=== PATIENT | male | born 1940 | race Caucasian/White ===

== ENCOUNTER 2017-04-21 17:35 | Inpatient (IN) | payer MEDICARE, BC ==
[2017-04-21] MEDS ORDERED: Sodium Chloride 0.9% 10 ML Syringe FLUSH PRN ×2 (17:56→21:51)
[2017-04-21] MEDS ORDERED: Sodium Chloride 0.9% 1,000 ML IV ONE (17:58)
[2017-04-21] MEDS ORDERED: Albuterol/Ipratropium 3.0-0.5 MG/3 ML Neb Soln NEB ONE (18:13)
[2017-04-21] MEDS ORDERED: Acetaminophen 325 MG Tab PO ONE (18:13)
[2017-04-21] MEDS ORDERED: cefTRIAXone 1 GM in Sodium Chloride 0.9% 50 ML IV ONE (19:47)
[2017-04-21] MEDS ORDERED: Azithromycin 500 MG in Sodium Chloride 0.9% 250 ML IV ONE (19:53)
--- NOTE | 2017-04-21 20:10 | EDM.PDOC ---
ED HPI GENERAL MEDICAL PROBLEM - General Chief Complaint: General Stated Complaint: ILLNESS WEAK ALFONSO Time Seen by Provider: 04/21/17 18:50 Source of Information: Reports: Patient, Family History Limitations: Reports: No Limitations - History of Present Illness INITIAL COMMENTS - FREE TEXT/NARRATIVE: Estevan is a 76 year old male who presents to the ED today with c/o increased fatigue and weakness since yesterday. Patient has had a URI for the last week. Patient denies any nausea, vomiting, or diarrhea. Patient denies any urinary symptoms. Patient on arrival here has a temperature of 103.8 F. Patient has had no Tylenol yet today. Duration: Day(s): (2) - Related Data Allergies Allergy/AdvReac Type Severity Reaction Status Date / Time No Known Allergies Allergy Verified 04/21/17 17:56 Home Meds: Home Meds Atenolol [Atenolol] 04/21/17 [History] Omeprazole 04/21/17 [History] Simvastatin [Zocor] 04/21/17 [History] Triamterene/Hydrochlorothiazid [Triamterene-HCTZ 37.5-25 MG] 04/21/17 [History] Past Medical History - Past Surgical History Musculoskeletal Surgical History: Reports: Knee Replacement Social & Family History - Tobacco Use Smoking Status *Q: Never Smoker ED ROS GENERAL - Review of Systems Review Of Systems: See Below Constitutional: Reports: Weakness, Fatigue Respiratory: Reports: Shortness of Breath, Wheezing, Cough, Sputum Cardiovascular: Reports: No Symptoms GI/Abdominal: Reports: No Symptoms : Reports: No Symptoms Musculoskeletal: Reports: No Symptoms Skin: Reports: No Symptoms Neurological: Reports: No Symptoms Psychiatric: Reports: No Symptoms ED EXAM, GENERAL - Physical Exam Exam: See Below Exam Limited By: No Limitations General Appearance: Alert, WD/WN Throat/Mouth: Normal Inspection, Normal Oropharynx Head: Atraumatic Neck: Normal Inspection, Supple, Non-Tender Respiratory/Chest: Rhonchi (Rhonchi right lower lobe, wheezing throughout), Wheezing Cardiovascular: Normal Peripheral Pulses, Regular Rate, Rhythm, No Murmur GI/Abdominal: Normal Bowel Sounds, Soft, Non-Tender Extremities: Normal Inspection Neurological: Alert, Oriented, CN II-XII Intact Psychiatric: Normal Affect, Normal Mood Skin Exam: Other (Hot to touch, flushed) Course - Vital Signs Text/Narrative:: Estevan is a 76 year old male who presents to the ED today with his family for concerns of increased weakness, fatigue and cough since yesterday. Please refer to HPI and focused exam. Patient on arrival is febrile with temp of 103.8 , he is normotensive and not tachycardic. Concerns for pneumonia given fever and recent URI. Possible other infection source given age is also possible such as UTI. He denies any abdominal pain to suggest intra-abdominal process. He denies any chest pain. PIV established, blood work obtained including cultures. Patient was given 1 liter of NS and 650 mg of Tylenol. Blood work returns with WBC of 3.9, HGb 13.9, platelets are low at 69. CMP returns with sodium of 128, chloride low at 92, albumin low at 3.2, elevated AST of 80 and elevated alkaline phos of 141. Lactic Acid is normal. CXR obtained and is questionable for early RLL infiltrate as well as retro-cardiac opacity, reviewed as well with Dr. Diana. UA pending. I feel given patient's age along with significant fever he should be admitted for observation, I will start him on Rocephin and Zithromax IV to cover for CAP. Patient was accepted for admission by hospitalist, Dr. Colbert. Patient and family updated on plan of care and are agreeable. Last Recorded V/S: Last Vital Signs Temp 39.6 C H 04/21/17 19:08 Pulse 74 04/21/17 19:43 Resp 18 04/21/17 18:02 BP 125/56 L 04/21/17 19:43 Pulse Ox 95 04/21/17 19:43 - Orders/Labs/Meds Orders: Active Orders 24 hr Category Date Time Status Peripheral IV Care [RC] . DIRECTED Care 04/21/17 17:56 Active RT Aerosol Therapy [RC] ASDIRECTED Care 04/21/17 18:14 Active Chest 2V [CR] Stat Exams 04/21/17 18:14 Taken CULTURE BLOOD [BC] Urgent Lab 04/21/17 18:15 Received CULTURE BLOOD [BC] Urgent Lab 04/21/17 18:18 Received UA W/MICROSCOPIC [URIN] Stat Lab 04/21/17 19:47 Uncollected Azithromycin [Zithromax] 500 mg Med 04/21/17 19:53 Active Sodium Chloride 0.9% [Normal Saline] 250 ml IV ONETIME Sodium Chloride 0.9% [Saline Flush] Med 04/21/17 17:56 Active 10 ml FLUSH ASDIRECTED PRN cefTRIAXone [Rocephin] 1 gm Med 04/21/17 19:47 Active Sodium Chloride 0.9% [Normal Saline] 50 ml IV ONETIME Blood Culture x2 Reflex Set [OM.PC] Urgent Oth 04/21/17 17:57 Ordered Peripheral IV Insertion Adult [OM.PC] Routine Ot 04/21/17 17:56 Ordered Medication Orders Azithromycin 500 mg/ Sodium (Chloride) 250 mls @ 250 mls/hr IV ONETIME ONE Stop: 04/21/17 20:52 Ceftriaxone Sodium 1 gm/ (Sodium Chloride) 50 mls @ 100 mls/hr IV ONETIME ONE Stop: 04/21/17 20:16 Sodium Chloride (Saline Flush) 10 ml FLUSH ASDIRECTED PRN PRN Reason: Keep Vein Open Last Admin: 04/21/17 19:09 Dose: 10 ml Labs: Laboratory Tests 04/21/17 04/21/17 04/21/17 Range/Units 18:15 18:15 18:15 WBC 3.9 L (4.5-11.0) K/uL RBC 4.53 (4.30-5.90) M/uL Hgb 13.4 (12.0-15.0) g/dL Hct 40.8 (40.0-54.0) % MCV 90 (80-98) fL MCH 30 (27-31) pg MCHC 33 (32-36) % Plt Count 62 L (150-400) K/uL Neut % (Auto) 76 H (36-66) % Lymph % (Auto) 8 L (24-44) % [place] % (Auto) 15 H (2-6) % Eos % (Auto) 0 L (2-4) % Baso % (Auto) 1 (0-1) % Sodium 128 L (140-148) mmol/L Potassium 3.6 (3.6-5.2) mmol/L Chloride 92 L (100-108) mmol/L Carbon Dioxide 26 (21-32) mmol/L Anion Gap 13.6 (5.0-14.0) mmol/L BUN 16 (7-18) mg/dL Creatinine 1.1 (0.8-1.3) mg/dL Est Cr Clr Drug Dosing 62.71 mL/min Estimated GFR (MDRD) > 60 (>60) Glucose 112 H (74-106) mg/dL Lactic Acid 1.4 (0.4-2.0) mmol/L Calcium 8.2 L (8.5-10.1) mg/dL Total Bilirubin 0.7 (0.2-1.0) mg/dL AST 80 H (15-37) U/L ALT 55 (12-78) U/L Alkaline Phosphatase 141 H (46-116) U/L Total Protein 7.3 (6.4-8.2) g/dL Albumin 3.2 L (3.4-5.0) g/dL Globulin 4.1 H (2.3-3.5) g/dL Albumin/Globulin Ratio 0.8 L (1.2-2.2) Meds: Medications Generic Name Dose Route Start Last Admin Trade Name Freq PRN Reason Stop Dose Admin Azithromycin 500 mg/ Sodium 250 mls @ 250 mls/hr 04/21/17 19:53 Chloride IV 04/21/17 20:52 ONETIME ONE Ceftriaxone Sodium 1 gm/ 50 mls @ 100 mls/hr 04/21/17 19:47 Sodium Chloride IV 04/21/17 20:16 ONETIME ONE Sodium Chloride 10 ml 04/21/17 17:56 04/21/17 19:09 Saline Flush FLUSH 10 ml ASDIRECTED PRN Administration Keep Vein Open Discontinued Medications Generic Name Dose Route Start Last Admin Trade Name Freq PRN Reason Stop Dose Admin Acetaminophen 650 mg 04/21/17 18:13 04/21/17 19:08 Tylenol PO 04/21/17 18:14 650 mg NOW ONE Administration Albuterol/Ipratropium 3 ml 04/21/17 18:13 04/21/17 19:09 Duoneb 3.0-0.5 Mg/3 Ml NEB 04/21/17 18:14 3 ml ONETIME ONE Administration Sodium Chloride 1,000 mls @ 999 mls/hr 04/21/17 17:58 04/21/17 19:09 Normal Saline IV 04/21/17 18:58 999 mls/hr .BOLUS ONE Administration Departure - Departure Time of Disposition: 20:30 Disposition: Admitted As Inpatient 66 Condition: Good Clinical Impression: Generalized weakness Pneumonia Qualifiers: Pneumonia type: due to unspecified organism Laterality: right Lung location: lower lobe of lung Qualified Code(s): J18.1 - Lobar pneumonia, unspecified organism - Discharge Information Forms: ED Department Discharge - My Orders Last 24 Hours: My Active Orders 04/21/17 17:56 Peripheral IV Care [RC] . DIRECTED Sodium Chloride 0.9% [Saline Flush] 10 ml FLUSH ASDIRECTED PRN Peripheral IV Insertion Adult [OM.PC] Routine 04/21/17 17:57 Blood Culture x2 Reflex Set [OM.PC] Urgent 04/21/17 18:14 RT Aerosol Therapy [RC] ASDIRECTED Chest 2V [CR] Stat 04/21/17 18:15 CULTURE BLOOD [BC] Urgent 04/21/17 18:18 CULTURE BLOOD [BC] Urgent 04/21/17 19:47 UA W/MICROSCOPIC [URIN] Stat cefTRIAXone [Rocephin] 1 gm Sodium Chloride 0.9% [Normal Saline] 50 ml IV ONETIME 04/21/17 19:53 Azithromycin [Zithromax] 500 mg Sodium Chloride 0.9% [Normal Saline] 250 ml IV ONETIME - Assessment/Plan Last 24 Hours: My Active Orders 04/21/17 17:56 Peripheral IV Care [RC] . DIRECTED Sodium Chloride 0.9% [Saline Flush] 10 ml FLUSH ASDIRECTED PRN Peripheral IV Insertion Adult [OM.PC] Routine 04/21/17 17:57 Blood Culture x2 Reflex Set [OM.PC] Urgent 04/21/17 18:14 RT Aerosol Therapy [RC] ASDIRECTED Chest 2V [CR] Stat 04/21/17 18:15 CULTURE BLOOD [BC] Urgent 04/21/17 18:18 CULTURE BLOOD [BC] Urgent 04/21/17 19:47 UA W/MICROSCOPIC [URIN] Stat cefTRIAXone [Rocephin] 1 gm Sodium Chloride 0.9% [Normal Saline] 50 ml IV ONETIME 04/21/17 19:53 Azithromycin [Zithromax] 500 mg Sodium Chloride 0.9% [Normal Saline] 250 ml IV ONETIME
--- NOTE | 2017-04-21 21:40 | PCM.HP ---
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 He has not felt well over the past 3 days with fever and progressive weakness, appetite is been diminished and he is noted a mild headache. Today was more weak and confused so family brought him in for evaluation in the emergency department. His white blood cell count is low and he is also noted to have thrombocytopenia associated with mild elevation in AST. There was question of possible infiltrate on chest x-ray, but nothing definitive. He is spending his summer in the [place] area is often out in the brush and longer grasp. He has noted one tic in the recent past but this was a larger tic and not a deer tick. He is noted no rashes and is not had significant muscle or joint pain. At baseline he is somewhat short of breath and for some time he and family have noted some wheezing. He does have an [id number] smoking history but stopped smoking 13- 14 years ago. He does not think shortness of breath is worse in the uterus really has noted no worsening of his cough. - Related Data Allergies/Adverse Reactions: Allergies Allergy/AdvReac Type Severity Reaction Status Date / Time No Known Allergies Allergy Verified 04/21/17 17:56 Home Medications: Home Meds Atenolol [Atenolol] 04/21/17 [History] Omeprazole 04/21/17 [History] Simvastatin [Zocor] 04/21/17 [History] Triamterene/Hydrochlorothiazid [Triamterene-HCTZ 37.5-25 MG] 04/21/17 [History] Past Medical History - Past Surgical History Musculoskeletal Surgical History: Reports: Knee Replacement Social & Family History - Tobacco Use Smoking Status *Q: Never Smoker H&P Review of Systems - Review of Systems: Review Of Systems: See Below General: Reports: Fever, Chills, Weakness HEENT: Reports: Headaches. Denies: Ear Pain, Sinus Congestion, Sore Throat Pulmonary: Reports: Shortness of Breath, Wheezing, Cough. Denies: Pleuritic Chest Pain, Sputum, Hemoptysis Cardiovascular: Reports: Dyspnea on Exertion. Denies: Chest Pain, Palpitations , Orthopnea, PND, Edema, Lightheadedness, Syncope Gastrointestinal: Reports: No Symptoms Genitourinary: Reports: No Symptoms Musculoskeletal: Reports: No Symptoms Skin: Reports: No Symptoms Psychiatric: Reports: Confusion Neurological: Reports: Confusion Hematologic/Lymphatic: Reports: No Symptoms Immunologic: Reports: No Symptoms Exam - Exam Exam: See Below - Vital Signs Vital Signs: Last Vital Signs Temp 100.4 F 04/21/17 20:20 Pulse 60 04/21/17 20:20 Resp 14 04/21/17 20:20 BP 100/55 L 04/21/17 20:20 Pulse Ox 94 L 04/21/17 20:20 Weight: 230 lb - Exam Quality Assessment: DVT Prophylaxis General: Alert, Oriented, Cooperative, Mild Distress HEENT: Conjunctiva Clear, EOMI. No: Hearing Intact, Mucosa Moist & [place], Normal Nasal Septum, Posterior Pharynx Clear, Pupils Equal, Pupils Reactive Neck: Supple, Trachea Midline, +2 Carotid Pulse wo Bruit Lungs: Decreased Breath Sounds, Wheezing. No: Crackles, Rales, Rhonchi Cardiovascular: Regular Rate, Regular Rhythm, Normal S1, Normal S2. No: Systolic Murmur, Diastolic Murmur Abdomen: Normal Bowel Sounds, Soft, Other (Umbilical hernia). No: Organomegaly , Peritoneal Signs, Distention, Guarding, Rigidity, Rebound, Tenderness Back Exam: Normal Inspection, Full Range of Motion, NT Extremities: 3, Normal Inspection, 10 Skin: Warm, Dry, Intact Neurological: Cranial Nerves Intact, Strength Equal Bilateral, Normal Speech, Normal Tone, Sensation Intact. No: Focal Deficit Neuro Extensive - Mental Status: Alert, Oriented x3, Normal Mood/Affect, Normal Cognition, Memory Intact - Patient Data Lab Results Last 24 hrs: Laboratory Results - last 24 hr 04/21/17 04/21/17 04/21/17 Range/Units 18:15 18:15 18:15 WBC 3.9 L (4.5-11.0) K/uL RBC 4.53 (4.30-5.90) M/uL Hgb 13.4 (12.0-15.0) g/dL Hct 40.8 (40.0-54.0) % MCV 90 (80-98) fL MCH 30 (27-31) pg MCHC 33 (32-36) % Plt Count 62 L (150-400) K/uL Neut % (Auto) 76 H (36-66) % Lymph % (Auto) 8 L (24-44) % [place] % (Auto) 15 H (2-6) % Eos % (Auto) 0 L (2-4) % Baso % (Auto) 1 (0-1) % Sodium 128 L (140-148) mmol/L Potassium 3.6 (3.6-5.2) mmol/L Chloride 92 L (100-108) mmol/L Carbon Dioxide 26 (21-32) mmol/L Anion Gap 13.6 (5.0-14.0) mmol/L BUN 16 (7-18) mg/dL Creatinine 1.1 (0.8-1.3) mg/dL Est Cr Clr Drug Dosing 62.71 mL/min Estimated GFR (MDRD) > 60 (>60) Glucose 112 H (74-106) mg/dL Lactic Acid 1.4 (0.4-2.0) mmol/L Calcium 8.2 L (8.5-10.1) mg/dL Total Bilirubin 0.7 (0.2-1.0) mg/dL AST 80 H (15-37) U/L ALT 55 (12-78) U/L Alkaline Phosphatase 141 H (46-116) U/L Total Protein 7.3 (6.4-8.2) g/dL Albumin 3.2 L (3.4-5.0) g/dL Globulin 4.1 H (2.3-3.5) g/dL Albumin/Globulin Ratio 0.8 L (1.2-2.2) Urine Color Urine Appearance Urine pH (4.5-8.0) Ur Specific [place] (1.008-1.030) Urine Protein (NEGATIVE) mg/dL Urine Glucose (UA) (NEGATIVE) mg/dL Urine Ketones (NEGATIVE) mg/dL Urine Occult Blood (NEGATIVE) Urine Nitrite (NEGAITVE) Urine Bilirubin (NEGATIVE) Urine Urobilinogen (NORMAL) mg/dL Ur Leukocyte Esterase (NEGATIVE) Urine RBC (0-5) Urine WBC (0-5) Ur Epithelial Cells Amorphous Sediment Urine Bacteria Urine Mucus 04/21/17 Range/Units 20:03 WBC (4.5-11.0) K/uL RBC (4.30-5.90) M/uL Hgb (12.0-15.0) g/dL Hct (40.0-54.0) % MCV (80-98) fL MCH (27-31) pg MCHC (32-36) % Plt Count (150-400) K/uL Neut % (Auto) (36-66) % Lymph % (Auto) (24-44) % [place] % (Auto) (2-6) % Eos % (Auto) (2-4) % Baso % (Auto) (0-1) % Sodium (140-148) mmol/L Potassium (3.6-5.2) mmol/L Chloride (100-108) mmol/L Carbon Dioxide (21-32) mmol/L Anion Gap (5.0-14.0) mmol/L BUN (7-18) mg/dL Creatinine (0.8-1.3) mg/dL Est Cr Clr Drug Dosing mL/min Estimated GFR (MDRD) (>60) Glucose (74-106) mg/dL Lactic Acid (0.4-2.0) mmol/L Calcium (8.5-10.1) mg/dL Total Bilirubin (0.2-1.0) mg/dL AST (15-37) U/L ALT (12-78) U/L Alkaline Phosphatase (46-116) U/L Total Protein (6.4-8.2) g/dL Albumin (3.4-5.0) g/dL Globulin (2.3-3.5) g/dL Albumin/Globulin Ratio (1.2-2.2) Urine Color Yellow Urine Appearance Clear Urine pH 5.0 (4.5-8.0) Ur Specific [place] 1.020 (1.008-1.030) Urine Protein Trace (NEGATIVE) mg/dL Urine Glucose (UA) Normal (NEGATIVE) mg/dL Urine Ketones Negative (NEGATIVE) mg/dL Urine Occult Blood Moderate (NEGATIVE) Urine Nitrite Negative (NEGAITVE) Urine Bilirubin Negative (NEGATIVE) Urine Urobilinogen 1 (NORMAL) mg/dL Ur Leukocyte Esterase Negative (NEGATIVE) Urine RBC 0-5 (0-5) Urine WBC 0-5 (0-5) Ur Epithelial Cells Few Amorphous Sediment Not seen Urine Bacteria Few Urine Mucus Not seen Result Diagrams: 04/21/17 18:15 04/21/17 18:15 *Q Meaningful Use (ADM) - VTE *Q VTE Criteria *Q: - VTE Risk Assess *Q Each Risk Factor Represents 1 Point: Obesity (BMI greater than 30) Total Score 1 Point Risk Factors: 1 Each Risk Factor Represents 2 Points: None Total Score 2 Point Risk Factors: 0 Each Risk Factor Represents 3 Points: Age 75 Years or Greater Total Score 3 Point Risk Factors: 3 Each Risk Factor Represents 5 Points: None Total Score 5 Point Risk Factors: 0 Venous Thromboembolism Risk Factor Score *Q: 4 - Stroke *Q Stroke Criteria *Q: - AMI *Q AMI Criteria *Q: Problem List Initiated/Reviewed/Updated: Yes Orders Last 24hrs: Active Orders 24 hr Category Date Time Status Patient Status Manage Transfer [TRANSFER] Routine ADT 04/21/17 21:20 Active Peripheral IV Care [RC] . DIRECTED Care 04/21/17 17:56 Active RT Aerosol Therapy [RC] ASDIRECTED Care 04/21/17 18:14 Active Chest 2V [CR] Stat Exams 04/21/17 18:14 Taken CULTURE BLOOD [BC] Urgent Lab 04/21/17 18:15 Received CULTURE BLOOD [BC] Urgent Lab 04/21/17 18:18 Received Sodium Chloride 0.9% [Saline Flush] Med 04/21/17 17:56 Active 10 ml FLUSH ASDIRECTED PRN Blood Culture x2 Reflex Set [OM.PC] Urgent Oth 04/21/17 17:57 Ordered Peripheral IV Insertion Adult [OM.PC] Routine Oth 04/21/17 17:56 Ordered Resuscitation Status Routine Resus Stat 04/21/17 21:22 Ordered Medication Orders Sodium Chloride (Saline Flush) 10 ml FLUSH ASDIRECTED PRN PRN Reason: Keep Vein Open Last Admin: 04/21/17 19:09 Dose: 10 ml Assessment/Plan Comment:: ASSESSMENT AND PLAN FEBRILE ILLNESS-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 He has had some respiratory symptoms but these seem to be more chronic with no significant acute change. Question of possible infiltrate noted on chest x-ray. Other findings seem to be very consistent with anaplasmosis including leukopenia, thrombocytopenia, and liver enzyme elevation -Rocephin 1 g IV every 24 hours -Doxycycline 100 mg IV every 12 hours -IV fluids for hydration -Repeat chest x-ray in a.m. after hydration -Serology for tickborne illnesses COPD-he's had no previous diagnosis but ending some exam seems to be very consistent with this. History of chronic shortness of breath and wheezing associated with an 25-uhgt-poig smoking history -Supplemental oxygen as needed -Nebulizer therapy with albuterol and duo nebs HYPERTENSION -Continue beta vel therapy MAINTENANCE ISSUES -DVT prophylaxis; Lovenox 40 mg subcutaneous daily -GI prophylaxis; not indicated -More catheter; not indicated -Nutrition; regular diet -Nicotine dependence; not required CODE STATUS-FULL CODE ADMISSION STATUS-patient will be admitted to inpatient status, expect at least a 2 night hospital stay for evaluation and management of problems as outlined above. At the time of this admission I do not reasonably expected evaluation and management of this problem will require more than a 96 hour hospital stay. DISPOSITION-anticipate discharge to home after the hospital stay. PRIMARY CARE PROVIDER-patient is living in the [place] area for the summer but receives healthcare in the [facility]
[2017-04-21] MEDS ORDERED: Doxycycline 100 MG in Sodium Chloride 0.9% 100 ML IV SCH (21:51)
[2017-04-21] MEDS ORDERED: Docusate Sodium 100 MG Cap PO PRN (21:51)
[2017-04-21] MEDS ORDERED: Sodium Chloride 0.9% 500 ML IV SCH (21:51)
[2017-04-21] MEDS ORDERED: Ondansetron 4 MG/2 ML SDV IV PRN (21:51)
[2017-04-21] MEDS ORDERED: Magnesium Hydroxide 400 MG/5 ML Susp 30 ML Cup PO PRN (21:51)
[2017-04-21] MEDS ORDERED: oxyCODONE 5 MG Tab PO PRN (21:51)
[2017-04-21] MEDS ORDERED: Polyethylene Glycol 3350 Powder 17 GM Packet PO PRN (21:51)
[2017-04-21] MEDS ORDERED: Albuterol 0.083% 2.5 MG/3 ML Neb Soln NEB PRN (21:51)
[2017-04-21] MEDS ORDERED: cefTRIAXone 1 GM in Sodium Chloride 0.9% 50 ML IV SCH (21:51)
[2017-04-21] MEDS ORDERED: Albuterol/Ipratropium 3.0-0.5 MG/3 ML Neb Soln INH SCH (21:51)
[2017-04-21] MEDS: Enoxaparin 40 MG/0.4 ML Syringe SUBCUT SCH (23:19)
[2017-04-22] MEDS ORDERED: Sodium Chloride 0.9% 1,000 ML IV SCH (01:30)
[2017-04-22] MEDS: Acetaminophen 325 MG Tab PO PRN ×2 (02:52→17:08)
[2017-04-22] MEDS ORDERED: Potassium Chloride 20 MEQ Tab.ER PO ONE (09:00)
[2017-04-22] MEDS ORDERED: Simvastatin 20 MG Tab PO SCH ×2 (09:00→21:00)
[2017-04-22] MEDS: Hydrochlorothiazide/Triamterene 25-37.5 MG Cap PO SCH (09:57)
[2017-04-22] MEDS: Pantoprazole 40 MG Tab.CR PO SCH (09:57)
[2017-04-22] MEDS: Atenolol 25 MG Tab PO SCH (09:58)
[2017-04-22] MEDS: Doxycycline 100 MG in Sodium Chloride 0.9% 100 ML IV SCH ×2 (10:22→21:22)
--- NOTE | 2017-04-22 11:07 | PCM.PN ---
- General Info Date of Service: 04/22/17 Functional Status: Reports: tolerating diet, ambulating, urinating - Review of Systems General: Reports: Fever, Weakness. Denies: Chills Pulmonary: Reports: shortness of breath, cough, wheezing. Denies: pleuritic chest pain, sputum, hemoptysis Cardiovascular: Reports: Dyspnea on Exertion. Denies: Chest Pain, Palpitations , Orthopnea, PND, Edema Gastrointestinal: Reports: No symptoms Systems Review Comment:: This patient has been stable since admission, respiratory status has remained stable with no increase in shortness of breath or cough. Temperature is come down and his vital signs have been within good range. White blood cell count and platelets remain low with persistent mild elevation in liver enzymes. He feels significantly improved with more energy and increase in his appetite. - Patient Data Vitals - most recent: Last Vital Signs Temp 98.6 F 04/22/17 10:56 Pulse 61 04/22/17 10:56 Resp 20 04/22/17 10:56 BP 123/60 04/22/17 10:56 Pulse Ox 96 04/22/17 10:56 Weight - most recent: 218 lb I&O - last 24 hours: Intake & Output 04/21/17 04/22/17 04/22/17 22:59 06:59 14:59 Intake Total 1397 100 Output Total 550 2 Balance 847 98 Lab Results last 24 hrs: Laboratory Results - last 24 hr 04/22/17 04/22/17 Range/Units 05:35 05:35 WBC 2.4 L (4.5-11.0) K/uL RBC 4.11 L (4.30-5.90) M/uL Hgb 12.3 (12.0-15.0) g/dL Hct 36.7 L (40.0-54.0) % MCV 89 (80-98) fL MCH 30 (27-31) pg MCHC 34 (32-36) % Plt Count 48 L (150-400) K/uL Neut % (Auto) 68 H (36-66) % Lymph % (Auto) 16 L (24-44) % Howell % (Auto) 15 H (2-6) % Eos % (Auto) 1 L (2-4) % Baso % (Auto) 1 (0-1) % Sodium 131 L (140-148) mmol/L Potassium 3.3 L (3.6-5.2) mmol/L Chloride 99 L (100-108) mmol/L Carbon Dioxide 25 (21-32) mmol/L Anion Gap 10.3 (5.0-14.0) mmol/L BUN 14 (7-18) mg/dL Creatinine 1.0 (0.8-1.3) mg/dL Est Cr Clr Drug Dosing 68.98 mL/min Estimated GFR (MDRD) > 60 (>60) Glucose 109 H (74-106) mg/dL Calcium 7.9 L (8.5-10.1) mg/dL Total Bilirubin 0.6 (0.2-1.0) mg/dL AST 94 H (15-37) U/L ALT 65 (12-78) U/L Alkaline Phosphatase 150 H (46-116) U/L Total Protein 6.5 (6.4-8.2) g/dL Albumin 2.8 L (3.4-5.0) g/dL Globulin 3.7 H (2.3-3.5) g/dL Albumin/Globulin Ratio 0.8 L (1.2-2.2) Med Orders - Current: Current Medications Acetaminophen (Tylenol) 650 mg PO Q4H PRN PRN Reason: Pain (Mild 1-3)/fever Last Admin: 04/22/17 02:52 Dose: 650 mg Albuterol (Proventil Neb Soln) 2.5 mg NEB Q4H PRN PRN Reason: Shortness Of Breath/wheezing Atenolol (Tenormin) 25 mg PO DAILY [facility] Last Admin: 04/22/17 09:58 Dose: 25 mg Docusate Sodium (Colace) 100 mg PO BID PRN PRN Reason: Constipation Doxycycline Hyclate 100 mg/ (Sodium Chloride) 100 mls @ 100 mls/hr IV Q12H [facility] Last Admin: 04/22/17 10:22 Dose: 100 mls/hr Magnesium Hydroxide (Milk Of Magnesia) 30 ml PO Q12H PRN PRN Reason: Constipation Ondansetron HCl (Zofran) 4 mg IV Q4H PRN PRN Reason: Nausea/Vomiting Oxycodone HCl (Oxycodone) 5 mg PO Q4H PRN PRN Reason: Pain (moderate 4-6) Pantoprazole Sodium (Protonix) 40 mg PO ACBREAKFAST [facility] Last Admin: 04/22/17 09:57 Dose: 40 mg Polyethylene Glycol (Miralax) 17 gm PO DAILY PRN PRN Reason: Constipation Simvastatin (Zocor) 40 mg PO BEDTIME [facility] Sodium Chloride (Saline Flush) 10 ml FLUSH ASDIRECTED PRN PRN Reason: Keep Vein Open Triamterene/HCTZ (Dyazide 25-37.5 Mg) 1 each PO DAILY [facility] Last Admin: 04/22/17 09:57 Dose: 1 each Discontinued Medications Acetaminophen (Tylenol) 650 mg PO NOW ONE Stop: 04/21/17 18:14 Last Admin: 04/21/17 19:08 Dose: 650 mg Albuterol/Ipratropium (Duoneb 3.0-0.5 Mg/3 Ml) 3 ml NEB ONETIME ONE Stop: 04/21/17 18:14 Last Admin: 04/21/17 19:09 Dose: 3 ml Albuterol/Ipratropium (Duoneb 3.0-0.5 Mg/3 Ml) 3 ml INH ONETIME [facility] Enoxaparin Sodium (Lovenox) 40 mg SUBCUT DAILY [facility] Last Admin: 04/21/17 23:19 Dose: 40 mg Sodium Chloride (Normal Saline) 1,000 mls @ 999 mls/hr IV .BOLUS ONE Stop: 04/21/17 18:58 Last Admin: 04/21/17 19:09 Dose: 999 mls/hr Azithromycin 500 mg/ Sodium (Chloride) 250 mls @ 250 mls/hr IV ONETIME ONE Stop: 04/21/17 20:52 Last Admin: 04/21/17 20:18 Dose: 250 mls/hr Ceftriaxone Sodium 1 gm/ (Sodium Chloride) 50 mls @ 100 mls/hr IV ONETIME ONE Stop: 04/21/17 20:16 Last Admin: 04/21/17 20:18 Dose: 100 mls/hr Doxycycline Hyclate 100 mg/ (Sodium Chloride) 100 mls @ 100 mls/hr IV Q12H [facility] Last Admin: 04/21/17 23:21 Dose: 100 mls/hr Sodium Chloride (Normal Saline) 500 mls @ 500 mls/hr IV .BOLUS [facility] Stop: 04/22/17 01:52 Last Admin: 04/21/17 22:59 Dose: 500 mls/hr Sodium Chloride (Normal Saline) 1,000 mls @ 125 mls/hr IV ASDIRECTED [facility] Last Admin: 04/22/17 05:02 Dose: 125 mls/hr Ceftriaxone Sodium 1 gm/ (Sodium Chloride) 50 mls @ 100 mls/hr IV Q24H [facility] Last Admin: 04/21/17 22:56 Dose: Not Given Ceftriaxone Sodium 1 gm/ (Sodium Chloride) 50 mls @ 100 mls/hr IV Q24H [facility] Potassium Chloride (Klor-Con M20) 40 meq PO ONETIME ONE Stop: 04/22/17 09:01 Last Admin: 04/22/17 09:57 Dose: 40 meq Sodium Chloride (Saline Flush) 10 ml FLUSH ASDIRECTED PRN PRN Reason: Keep Vein Open Last Admin: 04/21/17 19:09 Dose: 10 ml - Exam Quality Assessment: DVT prophylaxis General: alert, oriented, no acute distress Lungs: Decreased breath sounds, Wheezing. No: Crackles, Rales, Rhonchi, Rub Cardiovascular: Regular Rate, Regular Rhythm, No Murmurs Abdomen: bowel sounds present, soft, no tenderness, no distension Extremities: no edema Skin: warm, dry, intact - Problem List Review Problem List Initiated/Reviewed/Updated: Yes - My Orders Last 24 Hours: My Active Orders 04/21/17 21:22 Resuscitation Status Routine 04/21/17 21:51 Patient Status [ADT] Routine Intake and Output [RC] QSHIFT Notify Provider Vital Signs [RC] ASDIRECTED Oxygen Therapy [RC] PRN Peripheral IV Care [RC] Q12H RT Aerosol Therapy [RC] ASDIRECTED Up With Assistance [RC] ASDIRECTED VTE/DVT Education [RC] Per Unit Routine Vital Signs [RC] Q4H Acetaminophen [Tylenol] 650 mg PO Q4H PRN Albuterol [Proventil Neb Soln] 2.5 mg NEB Q4H PRN Docusate Sodium [Colace] 100 mg PO BID PRN Magnesium Hydroxide [Milk of Magnesia] 30 ml PO Q12H PRN Ondansetron [Zofran] 4 mg IV Q4H PRN Polyethylene Glycol 3350 [MiraLAX] 17 gm PO DAILY PRN Sodium Chloride 0.9% [Saline Flush] 10 ml FLUSH ASDIRECTED PRN oxyCODONE 5 mg PO Q4H PRN Peripheral IV Insertion Adult [OM.PC] Routine 04/21/17 21:54 EHRLICHIA CHAFFEENSIS, IGG&IGM [REF] Stat 04/21/17 Dinner Regular Diet [DIET] 04/22/17 05:00 Chest 2V [CR] Timed 04/22/17 08:26 Convert IV to Saline Lock [OM.PC] Routine 04/22/17 10:00 Doxycycline [Vibramycin] 100 mg Sodium Chloride 0.9% [Normal Saline] 100 ml IV Q12H 04/22/17 11:01 Sequential Compression Device [OM.PC] Routine 04/22/17 21:00 Simvastatin [Zocor] 40 mg PO BEDTIME 04/23/17 05:00 CBC WITH AUTO DIFF [HEME] Timed COMPREHENSIVE METABOLIC PN,CMP [CHEM] Timed - Plan Plan:: ASSESSMENT AND PLAN 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 He does have some respiratory symptoms but these seem to be more chronic and I suspect are secondary to underlying COPD. He has felt significantly improved since admission after hydration and his first dose of doxycycline. Follow-up chest x-ray from this morning after hydration shows no evidence of acute pneumonia. -Doxycycline 100 mg IV every 12 hours -Saline lock IV -Serology for tickborne illnesses COPD-he's had no previous diagnosis but findings on exam seems to be very consistent with this. History of chronic shortness of breath and wheezing associated with an [id number] smoking history -Supplemental oxygen as needed -Nebulizer therapy with albuterol and duo nebs HYPERTENSION -Continue beta vel therapy MAINTENANCE ISSUES -DVT prophylaxis; SCUDs, will hold on anticoagulation because of thrombocytopenia -GI prophylaxis; not indicated -More catheter; not indicated -Nutrition; regular diet -Nicotine dependence; not required CODE STATUS-FULL CODE ADMISSION STATUS-patient will be admitted to inpatient status, expect at least a 2 night hospital stay for evaluation and management of problems as outlined above. At the time of this admission I do not reasonably expected evaluation and management of this problem will require more than a 96 hour hospital stay. DISPOSITION-anticipate discharge to home after the hospital stay. PRIMARY CARE PROVIDER-patient is living in the [place] area for the summer but receives healthcare in the [facility]
[2017-04-22] MEDS: Enoxaparin 40 MG/0.4 ML Syringe SUBCUT SCH (11:19)
[2017-04-22] MEDS ORDERED: cefTRIAXone 1 GM in Sodium Chloride 0.9% 50 ML IV SCH (21:00)
[2017-04-23] MEDS: Pantoprazole 40 MG Tab.CR PO SCH (07:11)
[2017-04-23] MEDS: Atenolol 25 MG Tab PO SCH (08:22)
[2017-04-23] MEDS: Hydrochlorothiazide/Triamterene 25-37.5 MG Cap PO SCH (08:22)
--- NOTE | 2017-04-23 09:21 | CR ---
Heart size upper limits of normal. Interstitial thickening is likely chronic. No focal consolidation .
--- NOTE | 2017-04-23 09:30 | CR ---
Cardiac size stable. Mild increasing interstitial edema compared to prior. No focal consolidation.
[2017-04-23] MEDS: Doxycycline 100 MG in Sodium Chloride 0.9% 100 ML IV SCH (09:56)
[2017-04-23 10:51] VITALS: BP 131/72
--- NOTE | 2017-04-23 11:47 | PCM.DCSUM1 ---
Discharge Summary - Hospital Course Brief History: 76-year-old male with history of high blood pressure and tick bite 3 weeks ago who presented with fevers and weakness and was admitted for management of suspected anaplasmosis. - Discharge Data Discharge Date: 04/23/17 Discharge Disposition: Home, Self-Care 01 Condition: Good - Discharge Diagnosis/Problem(s) (1) Anaplasmosis SNOMED Code(s): 837062020 ICD Code: A77.49 - OTHER EHRLICHIOSIS Status: Acute - Patient Summary/Data Hospital Course: Estevan presented to the emergency room with weakness, confusion. Workup in the emergency room suggested possible anaplasmosis with leukopenia, thrombocytopenia , recent tick bite as well as other lab abnormalities and symptoms. He initially received antibiotics for pneumonia in the emergency room consisting of ceftriaxone and azithromycin. The ceftriaxone was thought to be sufficient for initial antibiotic coverage and doxycycline was not initiated until the morning after admission. Since the initiation of antibiotics the patient has improved significantly. His fever spikes have been improving each day though they have not completely resolved. His weakness and confusion have resolved. Laboratory tests have remained stable throughout the course of the hospital stay. Clinically he feels much better with improved strength and appetite. There was some wheezing noted early during the hospital stay but this has resolved. We did recommend outpatient evaluation for possible COPD. He feels well and has been ambulating safely and effectively. Vital signs have all been stable. I believe he is safe for outpatient management. I did recommend a total of 21 days of doxycycline therapy and advised about precautions while on this antibiotic. He should follow-up if his symptoms do not continue to get better or they get worse along the way. - Patient Instructions Diet: Regular Diet as Tolerated Activity: As Tolerated Activity, Other: Listen to your body, rest if you are feeling fatigued Driving: May Drive Today Showering/Bathing: May Shower Notify Provider of: Fever, Increased Pain, Nausea and/or Vomiting Other/Special Instructions: 1. You were in the hospital for management of anaplasmosis. I recommend 19 additional days of antibiotic therapy with doxycycline. You should take this medication twice daily with food to help avoid stomach upset. Your first dose is due tonight. This medication can make your skin more sensitive to the sun so you should make sure to cover up exposed skin or use plenty of sunscreen during daylight hours. You may have additional fever spikes over the next few days but the temperature should be decreasing each day. 2. Please continue your usual home medications as previously prescribed. 3. Please seek medical attention if you develop a fever greater than 101, persistent nausea with vomiting or severe diarrhea. - Discharge Plan Prescriptions/Med Rec: Doxycycline Hyclate 100 mg PO BID #38 tablet Home Medications: Home Meds Atenolol 1 tab PO DAILY 04/21/17 [History] Omeprazole 1 tab PO DAILY 04/21/17 [History] Simvastatin [Zocor] 1 tab PO DAILY 04/21/17 [History] Triamterene/Hydrochlorothiazid [Triamterene-HCTZ 37.5-25 MG] 1 tab PO DAILY 11/07 [History] Doxycycline Hyclate 100 mg PO BID #38 tablet 04/23/17 [Rx] Patient Handouts: Ehrlichiosis and Anaplasmosis, Doxycycline tablets or capsules Referrals: PCP,None [Primary Care Provider] - (follow up if your symptoms do not continue to improve or they worsen) - Discharge Summary/Plan Comment DC Time >30 min.: No (25) - Patient Data Vitals - Most Recent: Last Vital Signs Temp 36.8 C 04/23/17 10:50 Pulse 55 L 04/23/17 10:50 Resp 18 04/23/17 10:50 BP 131/72 04/23/17 10:50 Pulse Ox 97 04/23/17 10:50 Weight - Most Recent: 98.883 kg I&O - Last 24 hours: Intake & Output 04/22/17 04/23/17 04/23/17 22:59 06:59 14:59 Intake Total 540 400 240 Output Total 700 Balance 540 -300 240 Lab Results - Last 24 hrs: Laboratory Results - last 24 hr 04/23/17 04/23/17 Range/Units 05:40 05:40 WBC 2.1 L (4.5-11.0) K/uL RBC 4.21 L (4.30-5.90) M/uL Hgb 12.4 (12.0-15.0) g/dL Hct 37.9 L (40.0-54.0) % MCV 90 (80-98) fL MCH 30 (27-31) pg MCHC 33 (32-36) % Plt Count 47 L (150-400) K/uL Neut % (Auto) 39 (36-66) % Lymph % (Auto) 34 (24-44) % Iron % (Auto) 24 H (2-6) % Eos % (Auto) 0 L (2-4) % Baso % (Auto) 3 H (0-1) % Sodium 134 L (140-148) mmol/L Potassium 3.4 L (3.6-5.2) mmol/L Chloride 101 (100-108) mmol/L Carbon Dioxide 25 (21-32) mmol/L Anion Gap 11.4 (5.0-14.0) mmol/L BUN 11 (7-18) mg/dL Creatinine 0.8 (0.8-1.3) mg/dL Est Cr Clr Drug Dosing 86.22 mL/min Estimated GFR (MDRD) > 60 (>60) Glucose 105 (74-106) mg/dL Calcium 8.1 L (8.5-10.1) mg/dL Total Bilirubin 0.5 (0.2-1.0) mg/dL AST 76 H (15-37) U/L ALT 62 (12-78) U/L Alkaline Phosphatase 193 H (46-116) U/L Total Protein 6.7 (6.4-8.2) g/dL Albumin 2.7 L (3.4-5.0) g/dL Globulin 4.0 H (2.3-3.5) g/dL Albumin/Globulin Ratio 0.7 L (1.2-2.2) Med Orders - Current: Current Medications Acetaminophen (Tylenol) 650 mg PO Q4H PRN PRN Reason: Pain (Mild 1-3)/fever Last Admin: 04/22/17 17:08 Dose: 650 mg Albuterol (Proventil Neb Soln) 2.5 mg NEB Q4H PRN PRN Reason: Shortness Of Breath/wheezing Atenolol (Tenormin) 25 mg PO DAILY [facility] Last Admin: 04/23/17 08:22 Dose: 25 mg Docusate Sodium (Colace) 100 mg PO BID PRN PRN Reason: Constipation Doxycycline Hyclate 100 mg/ (Sodium Chloride) 100 mls @ 100 mls/hr IV Q12H [facility] Last Admin: 04/23/17 09:56 Dose: 100 mls/hr Magnesium Hydroxide (Milk Of Magnesia) 30 ml PO Q12H PRN PRN Reason: Constipation Ondansetron HCl (Zofran) 4 mg IV Q4H PRN PRN Reason: Nausea/Vomiting Oxycodone HCl (Oxycodone) 5 mg PO Q4H PRN PRN Reason: Pain (moderate 4-6) Pantoprazole Sodium (Protonix) 40 mg PO ACBREAKFAST [facility] Last Admin: 04/23/17 07:11 Dose: 40 mg Polyethylene Glycol (Miralax) 17 gm PO DAILY PRN PRN Reason: Constipation Simvastatin (Zocor) 40 mg PO BEDTIME [facility] Last Admin: 04/22/17 21:21 Dose: 40 mg Sodium Chloride (Saline Flush) 10 ml FLUSH ASDIRECTED PRN PRN Reason: Keep Vein Open Triamterene/HCTZ (Dyazide 25-37.5 Mg) 1 each PO DAILY [facility] Last Admin: 04/23/17 08:22 Dose: 1 each Discontinued Medications Acetaminophen (Tylenol) 650 mg PO NOW ONE Stop: 04/21/17 18:14 Last Admin: 04/21/17 19:08 Dose: 650 mg Albuterol/Ipratropium (Duoneb 3.0-0.5 Mg/3 Ml) 3 ml NEB ONETIME ONE Stop: 04/21/17 18:14 Last Admin: 04/21/17 19:09 Dose: 3 ml Albuterol/Ipratropium (Duoneb 3.0-0.5 Mg/3 Ml) 3 ml INH ONETIME [facility] Enoxaparin Sodium (Lovenox) 40 mg SUBCUT DAILY [facility] Last Admin: 04/22/17 11:19 Dose: Not Given Sodium Chloride (Normal Saline) 1,000 mls @ 999 mls/hr IV .BOLUS ONE Stop: 04/21/17 18:58 Last Admin: 04/21/17 19:09 Dose: 999 mls/hr Azithromycin 500 mg/ Sodium (Chloride) 250 mls @ 250 mls/hr IV ONETIME ONE Stop: 04/21/17 20:52 Last Admin: 04/21/17 20:18 Dose: 250 mls/hr Ceftriaxone Sodium 1 gm/ (Sodium Chloride) 50 mls @ 100 mls/hr IV ONETIME ONE Stop: 04/21/17 20:16 Last Admin: 04/21/17 20:18 Dose: 100 mls/hr Doxycycline Hyclate 100 mg/ (Sodium Chloride) 100 mls @ 100 mls/hr IV Q12H [facility] Last Admin: 04/21/17 23:21 Dose: 100 mls/hr Sodium Chloride (Normal Saline) 500 mls @ 500 mls/hr IV .BOLUS GUERO Stop: 04/22/17 01:52 Last Admin: 04/21/17 22:59 Dose: 500 mls/hr Sodium Chloride (Normal Saline) 1,000 mls @ 125 mls/hr IV ASDIRECTED [facility] Last Admin: 04/22/17 05:02 Dose: 125 mls/hr Ceftriaxone Sodium 1 gm/ (Sodium Chloride) 50 mls @ 100 mls/hr IV Q24H [facility] Last Admin: 04/21/17 22:56 Dose: Not Given Ceftriaxone Sodium 1 gm/ (Sodium Chloride) 50 mls @ 100 mls/hr IV Q24H [facility] Potassium Chloride (Klor-Con M20) 40 meq PO ONETIME ONE Stop: 04/22/17 09:01 Last Admin: 04/22/17 09:57 Dose: 40 meq Sodium Chloride (Saline Flush) 10 ml FLUSH ASDIRECTED PRN PRN Reason: Keep Vein Open Last Admin: 04/21/17 19:09 Dose: 10 ml *Q Meaningful Use (DIS) - VTE *Q VTE Criteria *Q: - Stroke *Q Stroke Criteria *Q: - AMI *Q AMI Criteria *Q:
== END 2017-04-23 12:23 | disposition home or self-care (01) | DRG 869 ==
LOC: JP.ED 17:35 → JP.MS 21:20
PROVIDERS: ADMIT Hospitalist; ATTEND Internal Medicine
DX: A77.49 Other ehrlichiosis (principal); D72.819 Decreased white blood cell count, unspecified; D69.6 Thrombocytopenia, unspecified; R41.0 Disorientation, unspecified; J44.9 Chronic obstructive pulmonary disease, unspecified; R53.1 Weakness; R50.9 Fever, unspecified; R53.83 Other fatigue; I10 Essential (primary) hypertension; Z79.2 Long term (current) use of antibiotics; Z96.659 Presence of unspecified artificial knee joint; W57.XXXA Bitten or stung by nonvenomous insect and other nonvenomous arthropods, initial encounter
CPT/HCPCS: 36415; 71020 ×2; 80053; 81001; 83605; 85025; 87040 ×2; 96361; 96365; 96367; 99285; A9270; J0456; J0696; J7040; J7050 ×3; J7620; 86666; 86666-59; 99284; J1650; J7030

== ENCOUNTER 2021-05-28 09:18 | Emergency (ER) | payer BC, MEDICARE ==
[2021-05-28] MEDS ORDERED: Sodium Chloride 0.9% 10 ML Syringe FLUSH PRN (09:27)
[2021-05-28] MEDS ORDERED: Sodium Chloride 0.9% 1,000 ML IV SCH (09:30)
--- NOTE | 2021-05-28 09:32 | EDM.PDOC ---
ED HPI GENERAL MEDICAL PROBLEM - General Chief Complaint: Neuro Symptoms/Deficits Stated Complaint: MAYBE A STROKE Time Seen by Provider: 05/28/21 09:27 Source of Information: Reports: Patient, Family, RN Notes Reviewed History Limitations: Reports: No Limitations - History of Present Illness INITIAL COMMENTS - FREE TEXT/NARRATIVE: 80-year-old gentleman presents emergency department day concerned about cerebrovascular accident. He is alert and orientated response to all questions speech per family members appears normal but he had an event this morning where he awoke had slurred speech was confused and had abnormal behavior. Last known well time was last night, he has no functional complaints at this time feels he is at his normal state - Related Data Allergies Allergy/AdvReac Type Severity Reaction Status Date / Time No Known Allergies Allergy Verified 05/28/21 09:25 Home Meds: Home Meds Omeprazole 1 tab PO DAILY 04/21/17 [History] Simvastatin [Zocor] 1 tab PO DAILY 04/21/17 [History] Triamterene/Hydrochlorothiazid [Triamterene-HCTZ 37.5-25 MG] 1 tab PO DAILY 04/21/17 [History] atenoloL [Atenolol] 1 tab PO DAILY 04/21/17 [History] Aspirin 325 mg PO DAILY 05/28/21 [History] Clopidogrel [Plavix] 75 mg PO DAILY #30 tablet 05/28/21 [Rx] Doxycycline Monohydrate 100 mg PO BID #20 capsule 05/28/21 [Rx] Losartan [Cozaar] 25 mg PO DAILY 05/28/21 [History] Metoprolol Succinate [Toprol XL] 25 mg PO DAILY 05/28/21 [History] Tamsulosin [Flomax] 1 tab PO DAILY 05/28/21 [History] Past Medical History HEENT History: Reports: Impaired Vision Cardiovascular History: Reports: High Cholesterol, Hypertension Oncologic (Cancer) History: Reports: Basal Cell Carcinoma - Past Surgical History HEENT Surgical History: Reports: Cataract Surgery, Retinal Cardiovascular Surgical History: Reports: None Respiratory Surgical History: Reports: None GI Surgical History: Reports: None Male Surgical History: Reports: None Endocrine Surgical History: Reports: None Neurological Surgical History: Reports: None Musculoskeletal Surgical History: Reports: Knee Replacement Oncologic Surgical History: Reports: None Dermatological Surgical History: Reports: None Social & Family History - Caffeine Use Caffeine Use: Reports: Soda ED ROS GENERAL - Review of Systems Review Of Systems: See Below Constitutional: Reports: No Symptoms HEENT: Reports: No Symptoms Respiratory: Reports: No Symptoms Cardiovascular: Reports: No Symptoms GI/Abdominal: Reports: No Symptoms Neurological: Reports: Confusion, Dizziness, Trouble Speaking, Difficulty Walking ED EXAM, NEURO - Physical Exam Exam: See Below Exam Limited By: No Limitations General Appearance: Alert, WD/WN, No Apparent Distress Eye Exam: Bilateral Eye: EOMI, Normal Inspection, PERRL Throat/Mouth: Normal Inspection, Normal Lips, Normal Teeth, Normal Gums, Normal Oropharynx, Normal Voice, No Airway Compromise Head Exam: Atraumatic, Normocephalic Neck: Normal Inspection, Supple, Non-Tender, Full Range of Motion Respiratory/Chest: No Respiratory Distress, Lungs Clear, Normal Breath Sounds, No Accessory Muscle Use, Chest Non-Tender Cardiovascular: Systolic Murmur, Irregularly Irregular GI/Abdominal: Soft, Non-Tender Neurological: Alert, Normal Mood/Affect, Normal Dorsiflexion, CN II-XII Intact, Normal Plantar Flexion, No Motor/Sensory Deficits, Oriented x 3 #1 Interpretation EKG Date: 05/28/21 Time: 11:26 Rhythm: NSR [place]: Normal P-Wave: Present QRS: Normal ST-T: Normal QT: Normal Comparison: NA - No Prior EKG Course - Vital Signs Last Recorded V/S: Last Vital Signs Temp 103.8 F H 05/28/21 11:19 Pulse 78 05/28/21 11:19 Resp 25 H 05/28/21 11:19 BP 131/56 L 05/28/21 11:19 Pulse Ox 93 L 05/28/21 11:19 - Orders/Labs/Meds Orders: Active Orders 24 hr Category Date Time Status EKG Documentation Completion [RC] ASDIRECTED Care 05/28/21 09:28 Active Peripheral IV Care [RC] . DIRECTED Care 05/28/21 09:28 Active Sodium Chloride 0.9% [Normal Saline] 1,000 ml Med 05/28/21 09:30 Active IV ASDIRECTED Sodium Chloride 0.9% [Saline Flush] Med 05/28/21 09:27 Active 10 ml FLUSH ASDIRECTED PRN Peripheral IV Insertion Adult [OM.PC] Urgent Oth 05/28/21 09:27 Ordered EKG 12 Lead [EK] Stat Ther 05/28/21 09:27 Ordered Medication Orders Sodium Chloride (Normal Saline) 1,000 mls @ 125 mls/hr IV ASDIRECTED GUERO Last Admin: 05/28/21 10:20 Dose: 125 mls/hr Documented by: JOSEPH Sodium Chloride (Sodium Chloride 0.9% 10 Ml Syringe) 10 ml FLUSH ASDIRECTED PRN PRN Reason: Keep Vein Open Labs: Laboratory Tests 05/28/21 05/28/21 05/28/21 Range/Units 09:32 09:32 09:32 WBC 15.9 H (4.5-11.0) K/uL RBC 4.55 (4.30-5.90) M/uL Hgb 14.1 (12.0-15.0) g/dL Hct 43.1 (40.0-54.0) % MCV 95 (80-98) fL MCH 31 (27-31) pg MCHC 33 (32-36) % Plt Count 175 (150-400) K/uL Neut % (Auto) 90.6 H (36-66) % Lymph % (Auto) 2.9 L (24-44) % [place] % (Auto) 6.3 H (2-6) % Eos % (Auto) 0.1 L (2-4) % Baso % (Auto) 0.1 (0-1) % PT 11.2 (9.5-12.0) sec INR 1.03 (0.80-1.20) APTT 25.8 L (27.0-36.0) sec Sodium 135 L (140-148) mmol/L Potassium 4.0 (3.6-5.2) mmol/L Chloride 98 L (100-108) mmol/L Carbon Dioxide 23 (21-32) mmol/L Anion Gap 18.0 H (5.0-14.0) mmol/L BUN 22 H D (7-18) mg/dL Creatinine 1.5 H D (0.8-1.3) mg/dL Est Cr Clr Drug Dosing 43.11 mL/min Estimated GFR (MDRD) 45 L (>60) Glucose 148 H (74-106) mg/dL Lactic Acid (0.4-2.0) mmol/L Calcium 8.7 (8.5-10.1) mg/dL Total Bilirubin 0.5 (0.2-1.0) mg/dL AST 22 (15-37) U/L ALT 28 (12-78) U/L Alkaline Phosphatase 159 H (46-116) U/L Troponin I < 0.017 (0.000-0.056) ng/mL Total Protein 7.6 (6.4-8.2) g/dL Albumin 3.5 (3.4-5.0) g/dL Globulin 4.1 H (2.3-3.5) g/dL Albumin/Globulin Ratio 0.9 L (1.2-2.2) Urine Color (YELLOW) Urine Appearance (CLEAR) Urine pH (5.0-8.0) Ur Specific [place] (1.008-1.030) Urine Protein (NEGATIVE) mg/dL Urine Glucose (UA) (NEGATIVE) mg/dL Urine Ketones (NEGATIVE) mg/dL Urine Occult Blood (NEGATIVE) Urine Nitrite (NEGATIVE) Urine Bilirubin (NEGATIVE) Urine Urobilinogen (0.2-1.0) EU/dL Ur Leukocyte Esterase (NEGATIVE) Urine RBC (0-5) Urine WBC (0-5) Ur Epithelial Cells Amorphous Sediment Urine Bacteria Urine Mucus Ethyl Alcohol mg/dL SARS CoV-2 RNA Rapid MACRINA 05/28/21 05/28/21 05/28/21 Range/Units 09:32 09:32 11:35 WBC (4.5-11.0) K/uL RBC (4.30-5.90) M/uL Hgb (12.0-15.0) g/dL Hct (40.0-54.0) % MCV (80-98) fL MCH (27-31) pg MCHC (32-36) % Plt Count (150-400) K/uL Neut % (Auto) (36-66) % Lymph % (Auto) (24-44) % [place] % (Auto) (2-6) % Eos % (Auto) (2-4) % Baso % (Auto) (0-1) % PT (9.5-12.0) sec INR (0.80-1.20) APTT (27.0-36.0) sec Sodium (140-148) mmol/L Potassium (3.6-5.2) mmol/L Chloride (100-108) mmol/L Carbon Dioxide (21-32) mmol/L Anion Gap (5.0-14.0) mmol/L BUN (7-18) mg/dL Creatinine (0.8-1.3) mg/dL Est Cr Clr Drug Dosing mL/min Estimated GFR (MDRD) (>60) Glucose (74-106) mg/dL Lactic Acid 2.0 (0.4-2.0) mmol/L Calcium (8.5-10.1) mg/dL Total Bilirubin (0.2-1.0) mg/dL AST (15-37) U/L ALT (12-78) U/L Alkaline Phosphatase (46-116) U/L Troponin I (0.000-0.056) ng/mL Total Protein (6.4-8.2) g/dL Albumin (3.4-5.0) g/dL Globulin (2.3-3.5) g/dL Albumin/Globulin Ratio (1.2-2.2) Urine Color (YELLOW) Urine Appearance (CLEAR) Urine pH (5.0-8.0) Ur Specific [place] (1.008-1.030) Urine Protein (NEGATIVE) mg/dL Urine Glucose (UA) (NEGATIVE) mg/dL Urine Ketones (NEGATIVE) mg/dL Urine Occult Blood (NEGATIVE) Urine Nitrite (NEGATIVE) Urine Bilirubin (NEGATIVE) Urine Urobilinogen (0.2-1.0) EU/dL Ur Leukocyte Esterase (NEGATIVE) Urine RBC (0-5) Urine WBC (0-5) Ur Epithelial Cells Amorphous Sediment Urine Bacteria Urine Mucus Ethyl Alcohol < 3 mg/dL SARS CoV-2 RNA Rapid MACRINA Negative 05/28/21 Range/Units 11:47 WBC (4.5-11.0) K/uL RBC (4.30-5.90) M/uL Hgb (12.0-15.0) g/dL Hct (40.0-54.0) % MCV (80-98) fL MCH (27-31) pg MCHC (32-36) % Plt Count (150-400) K/uL Neut % (Auto) (36-66) % Lymph % (Auto) (24-44) % [place] % (Auto) (2-6) % Eos % (Auto) (2-4) % Baso % (Auto) (0-1) % PT (9.5-12.0) sec INR (0.80-1.20) APTT (27.0-36.0) sec Sodium (140-148) mmol/L Potassium (3.6-5.2) mmol/L Chloride (100-108) mmol/L Carbon Dioxide (21-32) mmol/L Anion Gap (5.0-14.0) mmol/L BUN (7-18) mg/dL Creatinine (0.8-1.3) mg/dL Est Cr Clr Drug Dosing mL/min Estimated GFR (MDRD) (>60) Glucose (74-106) mg/dL Lactic Acid (0.4-2.0) mmol/L Calcium (8.5-10.1) mg/dL Total Bilirubin (0.2-1.0) mg/dL AST (15-37) U/L ALT (12-78) U/L Alkaline Phosphatase (46-116) U/L Troponin I (0.000-0.056) ng/mL Total Protein (6.4-8.2) g/dL Albumin (3.4-5.0) g/dL Globulin (2.3-3.5) g/dL Albumin/Globulin Ratio (1.2-2.2) Urine Color Yellow (YELLOW) Urine Appearance Clear (CLEAR) Urine pH 5.0 (5.0-8.0) Ur Specific [place] 1.010 (1.008-1.030) Urine Protein Negative (NEGATIVE) mg/dL Urine Glucose (UA) Negative (NEGATIVE) mg/dL Urine Ketones Negative (NEGATIVE) mg/dL Urine Occult Blood Negative (NEGATIVE) Urine Nitrite Negative (NEGATIVE) Urine Bilirubin Negative (NEGATIVE) Urine Urobilinogen 0.2 (0.2-1.0) EU/dL Ur Leukocyte Esterase Negative (NEGATIVE) Urine RBC Not seen (0-5) Urine WBC Not seen (0-5) Ur Epithelial Cells Not seen Amorphous Sediment Few Urine Bacteria Not seen Urine Mucus Not seen Ethyl Alcohol mg/dL SARS CoV-2 RNA Rapid MACRINA Meds: Medications Generic Name Dose Route Start Last Admin Trade Name Freq PRN Reason Stop Dose Admin Sodium Chloride 1,000 mls @ 125 mls/hr 05/28/21 09:30 05/28/21 10:20 Normal Saline IV 125 mls/hr ASDIRECTED GUERO Administration Sodium Chloride 10 ml 05/28/21 09:27 Sodium Chloride 0.9% 10 Ml Syringe FLUSH ASDIRECTED PRN Keep Vein Open Discontinued Medications Generic Name Dose Route Start Last Admin Trade Name Sha PRN Reason Stop Dose Admin Sodium Chloride 100 mls @ 4 mls/sec 05/28/21 09:45 05/28/21 10:13 Normal Saline IV 05/28/21 09:46 4 mls/sec ASDIRECTED GUERO Administration Iopamidol 100 ml 05/28/21 09:45 05/28/21 10:13 Iopamidol 755 Mg/Ml 100 Ml Bottle IV 05/28/21 09:46 100 ml . DIRECTED GUERO Administration Sodium Chloride 10 ml 05/28/21 09:41 05/28/21 10:13 Sodium Chloride 0.9% 10 Ml Syringe FLUSH 05/28/21 09:42 10 ml ONETIME ONE Administration Departure - Departure Time of Disposition: 12:35 Disposition: Home, Self-Care 01 Condition: Fair Clinical Impression: TIA (transient ischemic attack) - Discharge Information Prescriptions: Doxycycline Monohydrate 100 mg PO BID #20 capsule Clopidogrel [Plavix] 75 mg PO DAILY #30 tablet Instructions: Transient Ischemic Attack, [id number] Referrals: PCP,None [Primary Care Provider] - Forms: ED Department Discharge Additional Instructions: Please start the aspirin and Plavix today, because of the fever and suspicious for tickborne illness recommend empiric course of doxycycline 100 mg twice a day both medications of doxycycline and Plavix have been faxed to [facility] pharmacy. Please call to the [facility] on Sunday to get an appointment time for emergency room follow-up and establish care. At your establish care visit the interventional neurology department is requesting an MRI of the brain and echocardiogram for suspected transient ischemic attack. After these 2 studies are done and the results are available you should have a follow-up with the interventional neurology clinic. Call return to the emergency department worsening of symptoms Sepsis Event Note (ED) - Focused Exam Vital Signs: Vital Signs Temp Pulse Resp BP Pulse Ox 05/28/21 11:19 103.8 F H 78 25 H 131/56 L 93 L 05/28/21 10:49 81 30 H 144/64 H 94 L 05/28/21 10:19 87 26 H 141/65 H 95 05/28/21 09:49 81 32 H 128/57 L 92 L 05/28/21 09:43 100.1 F 72 17 170/63 H 92 L 05/28/21 09:29 99.9 F 80 19 170/63 H 92 L - My Orders Last 24 Hours: My Active Orders 05/28/21 09:27 Sodium Chloride 0.9% [Saline Flush] 10 ml FLUSH ASDIRECTED PRN Peripheral IV Insertion Adult [OM.PC] Urgent EKG 12 Lead [EK] Stat 05/28/21 09:28 EKG Documentation Completion [RC] ASDIRECTED Peripheral IV Care [RC] . DIRECTED 05/28/21 09:30 Sodium Chloride 0.9% [Normal Saline] 1,000 ml IV ASDIRECTED - Assessment/Plan Last 24 Hours: My Active Orders 05/28/21 09:27 Sodium Chloride 0.9% [Saline Flush] 10 ml FLUSH ASDIRECTED PRN Peripheral IV Insertion Adult [OM.PC] Urgent EKG 12 Lead [EK] Stat 05/28/21 09:28 EKG Documentation Completion [RC] ASDIRECTED Peripheral IV Care [RC] . DIRECTED 05/28/21 09:30 Sodium Chloride 0.9% [Normal Saline] 1,000 ml IV ASDIRECTED Plan: Assessment Acuity = acute Site and laterality = suspicious for TIA Etiology = unknown Manifestations = none Location of injury = Home Lab values = WBC elevated 15.9 consistent with a leukocytosis INR is 1.03, creatinine elevated 1.3 consistent with chronic renal failure stage T3a lactic acid normal at 2.0 troponin was negative urinalysis negative alcohol negative Covid negative EKG demonstrates sinus rhythm no ST elevations or depressions CT scan of the head shows chronic small vessel disease, CTA reveals the distal left vertebral artery high-grade stenosis, CTA of the neck reveals 70% stenosis right internal carotid artery less than 50% on the left Plan Called and discussed the case with Dr. Russell interventional radiologist [facility] at 1110, recommended MRI and echocardiogram within a week start combination aspirin and Plavix continue with blood pressure control and cholesterol control. However because this gentleman had an event this morning I cannot fully be explained he currently has a fever and a white count of unknown etiology with possible tick exposure elected to treat empirically doxycycline 100 mg p.o. twice daily x10 days I have also faxed the medication for Plavix 75 mg once a day total #32 [facility] pharmacy. The plan is he will establish with primary care at the [facility] clinic in [place] the interventional neurology clinic is also aware of his situation and plan for follow-up with him. The goal is to get an MRI of the brain and echocardiogram done this week in [place] and those results will be shared with the interventional radiology clinic in [place] of which he will have an upcoming appointment This note was dictated using [employer] voice recognition software please call with any questions on syntax or grammar.
[2021-05-28] MEDS ORDERED: Sodium Chloride 0.9% 10 ML Syringe FLUSH ONE (09:41)
[2021-05-28] MEDS ORDERED: Iopamidol 755 Mg/ML 100 ML Bottle IV SCH (09:45)
[2021-05-28] MEDS ORDERED: Sodium Chloride 0.9% 100 ML IV SCH (09:45)
--- NOTE | 2021-05-28 10:38 | CRLCT ---
For Patients: As a result of the Century Cures Act, medical imaging exams and procedure reports are released immediately into your electronic medical record. You may view this report before your referring provider. If you have questions, please contact your health care provider. Indication: Slurred speech Technique: CT of the head without contrast. Coronal and sagittal reformats. Bone and soft tissue windows. Comparison: No prior studies available for comparison at this institution. Findings: No acute intracranial hemorrhage or extra-axial collection. No evidence of acute cortical infarction. No mass effect or midline shift. Normal cerebral volume. The ventricles are normal in size, shape and contour. There is normal woo and white matter differentiation. Minimal hypoattenuation in the subcortical white matter of both cerebral hemispheres likely secondary to chronic small vessel ischemic changes. Carotid siphon atherosclerosis. The orbital contents are normal. No calvarial fractures. No lytic or sclerotic osseous lesions within the calvarium or skull base. Scalp and other imaged soft tissue structures are normal. Mastoid air cells are clear. Paranasal sinuses are well aerated. Impression: No acute intracranial abnormality. Minimal hypoattenuation in the subcortical white matter of both cerebral hemispheres likely secondary to chronic small vessel ischemic changes. Please note that all CT scans at this facility use dose modulation, iterative reconstruction, and/or weight-based dosing when appropriate to reduce radiation dose to as low as reasonably achievable. Dictated by George Chun MD @ 05/28/2021 10:36:[address] George Chun @ May 28 2021 10:36AM
--- NOTE | 2021-05-28 10:42 | CRLCT ---
For Patients: As a result of the Century Cures Act, medical imaging exams and procedure reports are released immediately into your electronic medical record. You may view this report before your referring provider. If you have questions, please contact your health care provider. CT ANGIOGRAM HEAD AND NECK DATE: 05/28/2021 CLINICAL HISTORY: Patient with slurred speech. TECHNIQUE: Standard helical CT image acquisition through the head and neck was performed after intravenous contrast bolus enhancement. Multiplanar reconstructed images were performed and interpreted. COMPARISON: CT same day. FINDINGS: There is no proximal intracranial large vessel occlusion. There is intracranial atherosclerosis with a focal severe stenosis in the post-PICA segment of the left vertebral artery. The origins of the great vessels from the aortic arch are patent. The origin of the right vertebral artery demonstrates moderate narrowing. The origin of the left vertebral artery demonstrates moderate narrowing The common carotid arteries are patent. There is a mild (<50%) stenosis at the origin of the right internal carotid artery by NASCET criteria. This is caused by calcified plaque with a >2mm residual lumen. There is a mild (<50%) stenosis at the origin of the left internal carotid artery by NASCET criteria. This is caused by calcified plaque with a >2mm residual lumen. The rest of the cervical segments of the internal carotid arteries are patent up to their intracranial segments. The intracranial segments of the internal carotid arteries are patent. The vertebral arteries dominant. The cervical segments of the vertebral arteries are patent. The visualized lung apices are unremarkable The thyroid gland is unremarkable. The soft tissues of the neck are unremarkable. There are degenerative changes in the cervical spine. IMPRESSION: 1. No proximal intracranial large vessel occlusion. 2. Intracranial atherosclerosis with a focal severe stenosis in the post-PICA segment of the left vertebral artery. 3. Mild stenosis at the origins of the internal carotid arteries bilaterally. 4. Moderate narrowing at the origins of the vertebral arteries bilaterally. Please note that all CT scans at this facility use dose modulation, iterative reconstruction, and/or weight-based dosing when appropriate to reduce radiation dose to as low as reasonably achievable. Dictated by: Javier Guzman MD @ 05/28/2021 12:43:38 (Electronically Signed)
[2021-05-28 11:49] VITALS: BP 131/56; PULSE 78
== END 2021-05-28 13:00 | disposition home or self-care (01) ==
LOC: JP.ED 09:18
DX: G45.9 Transient cerebral ischemic attack, unspecified (principal); I10 Essential (primary) hypertension; E78.00 Pure hypercholesterolemia, unspecified; Z79.82 Long term (current) use of aspirin; Z79.899 Other long term (current) drug therapy; Z20.822 Contact with and (suspected) exposure to COVID-19; Z79.02 Long term (current) use of antithrombotics/antiplatelets
CPT/HCPCS: 36415; 70450; 70496; 70498; 80053; 80307; 81001; 83605; 84484; 85025; 85610; 85730; 93005; 99285; J7030; Q9967; U0002

== ENCOUNTER 2021-05-29 21:06 | Emergency (ER) | payer MEDICARE ==
[2021-05-29] MEDS ORDERED: Sodium Chloride 0.9% 10 ML Syringe FLUSH PRN (22:10)
[2021-05-29] MEDS ORDERED: Acetaminophen 500 MG Tab PO ONE (22:11)
--- NOTE | 2021-05-29 22:17 | EDM.PDOC ---
ED HPI GENERAL MEDICAL PROBLEM - General Chief Complaint: Skin Complaint Stated Complaint: LEFT LEG SWOLLEN/RASH Time Seen by Provider: 05/29/21 22:00 Source of Information: Reports: Patient, Family, Old Records, RN History Limitations: Reports: No Limitations - History of Present Illness INITIAL COMMENTS - FREE TEXT/NARRATIVE: 80 yo male returns with family after being seen yesterday here in the ER for fever and redness of the L leg. He had some transient neuro changes and a fever yesterday and was felt to have had a TIA as an explanation for his neuro changes and tick dz as a cause for his fever. He was sent home on Plavix and doxycycline. When family got home last night they noticed the back of his L leg was red and today the redness is spreading up the leg to the medial R groin. He continues to have fevers controlled with acetaminophen. No confusions today. No other specific complaints today. 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: Acetaminophen, Other (see below) (doxycycline) Left Lower Leg Pain Score (Numeric/FACES): 3 - Related Data Allergies Allergy/AdvReac Type Severity Reaction Status Date / Time No Known Allergies Allergy Verified 05/29/21 21:33 Home Meds: Home Meds Omeprazole 1 tab PO DAILY 04/21/17 [History] Simvastatin [Zocor] 1 tab PO DAILY 04/21/17 [History] Triamterene/Hydrochlorothiazid [Triamterene-HCTZ 37.5-25 MG] 1 tab PO DAILY 04/21/17 [History] atenoloL [Atenolol] 1 tab PO DAILY 04/21/17 [History] Aspirin 325 mg PO DAILY 05/28/21 [History] Clopidogrel [Plavix] 75 mg PO DAILY #30 tablet 05/28/21 [Rx] Doxycycline Monohydrate 100 mg PO BID #20 capsule 05/28/21 [Rx] Losartan [Cozaar] 25 mg PO DAILY 05/28/21 [History] Metoprolol Succinate [Toprol XL] 25 mg PO DAILY 05/28/21 [History] Tamsulosin [Flomax] 1 tab PO DAILY 05/28/21 [History] Past Medical History HEENT History: Reports: Impaired Vision Cardiovascular History: Reports: High Cholesterol, Hypertension Respiratory History: Reports: None Gastrointestinal History: Reports: None Genitourinary History: Reports: None Musculoskeletal History: Reports: None Neurological History: Reports: None Psychiatric History: Reports: None Endocrine/Metabolic History: Reports: None Hematologic History: Reports: None Oncologic (Cancer) History: Reports: Basal Cell Carcinoma Dermatologic History: Reports: None - Past Surgical History HEENT Surgical History: Reports: Cataract Surgery, Retinal Cardiovascular Surgical History: Reports: None Respiratory Surgical History: Reports: None GI Surgical History: Reports: None Male Surgical History: Reports: None Endocrine Surgical History: Reports: None Neurological Surgical History: Reports: None Musculoskeletal Surgical History: Reports: Knee Replacement Oncologic Surgical History: Reports: None Dermatological Surgical History: Reports: None Social & Family History - Tobacco Use Tobacco Use Status *Q: Never Tobacco User - Caffeine Use Caffeine Use: Reports: None - Recreational Drug Use Recreational Drug Use: No ED ROS GENERAL - Review of Systems Review Of Systems: See Below Constitutional: Reports: No Symptoms HEENT: Reports: No Symptoms Respiratory: Reports: No Symptoms Cardiovascular: Reports: No Symptoms Endocrine: Reports: No Symptoms GI/Abdominal: Reports: No Symptoms : Reports: No Symptoms Musculoskeletal: Reports: No Symptoms Skin: Reports: Erythema (L leg) Neurological: Reports: No Symptoms ED EXAM, SKIN/RASH Exam: See Below Exam Limited By: No Limitations General Appearance: Alert, WD/WN, No Apparent Distress Eye Exam: Bilateral Eye: Normal Inspection Ears: Normal External Exam, Normal Canal, Hearing Loss Nose: Normal Inspection, No Blood Throat/Mouth: Normal Inspection, Normal Lips, Normal Oropharynx, Normal Voice, No Airway Compromise Head: Atraumatic, Normocephalic Neck: Normal Inspection Respiratory/Chest: No Respiratory Distress, Lungs Clear, Normal Breath Sounds, No Accessory Muscle Use Cardiovascular: Regular Rate, Rhythm, No Edema GI/Abdominal: Normal Bowel Sounds, Soft, Non-Tender, No Distention Back Exam: Normal Inspection. No: CVA Tenderness (R), CVA Tenderness (L) Extremities: Normal Inspection, Normal Range of Motion, Non-Tender, No Pedal Edema Neurological: Alert, Oriented, CN II-XII Intact, Normal Cognition, No Motor/Sensory Deficits Psychiatric: Normal Affect, Normal Mood Skin: Warm, Dry, Intact, Erythema (L calf area with redness extending up leg to the medial thigh), Increased Warmth, Lymphangitis Location, Skin: Lower Extremity, Left Characteristics: Confluent, Erythematous Associated features: Warmth, Lymphangitis. No: Tenderness Course - Vital Signs Last Recorded V/S: Last Vital Signs Temp 36.4 C 05/29/21 21:44 Pulse 56 L 05/29/21 22:22 Resp 16 05/29/21 21:44 BP 130/56 L 05/29/21 22:22 Pulse Ox 94 L 05/29/21 21:44 - Orders/Labs/Meds Orders: Active Orders 24 hr Category Date Time Status VL Duplex Lwr Ext Veins Ltd Lt [US] Stat Exams 05/29/21 23:33 Ordered CULTURE BLOOD [BC] Stat Lab 05/29/21 22:10 Received CULTURE BLOOD [BC] Stat Lab 05/29/21 22:25 Received NS + KCl 20mEq/L [Normal Saline with 20 mEq KCl] 1,000 Med 05/29/21 23:30 Active ml IV ASDIRECTED Sodium Chloride 0.9% [Saline Flush] Med 05/29/21 22:10 Active 10 ml FLUSH ASDIRECTED PRN Saline Lock Insert [OM.PC] Routine Oth 05/29/21 22:10 Ordered Medication Orders Potassium Chloride/Sodium Chloride (Normal Saline With 20 Meq Kcl) 1,000 mls @ 1,000 mls/hr IV ASDIRECTED GUERO Last Admin: 05/29/21 23:32 Dose: 1,000 mls/hr Documented by: LAILA Sodium Chloride (Sodium Chloride 0.9% 10 Ml Syringe) 10 ml FLUSH ASDIRECTED PRN PRN Reason: Keep Vein Open Last Admin: 05/29/21 22:22 Dose: 10 ml Documented by: LAILA Labs: Laboratory Tests 05/29/21 05/29/21 05/29/21 Range/Units 22:25 22:25 22:30 WBC 9.3 (4.5-11.0) K/uL RBC 4.12 L (4.30-5.90) M/uL Hgb 12.8 (12.0-15.0) g/dL Hct 39.2 L (40.0-54.0) % MCV 95 (80-98) fL MCH 31 (27-31) pg MCHC 33 (32-36) % Plt Count 147 L (150-400) K/uL D-Dimer, Quantitative 908.48 H (0.0-500.0) ng/mL Sodium 135 L (140-148) mmol/L Potassium 3.2 L (3.6-5.2) mmol/L Chloride 98 L (100-108) mmol/L Carbon Dioxide 24 (21-32) mmol/L Anion Gap 16.2 H (5.0-14.0) mmol/L BUN 31 H (7-18) mg/dL Creatinine 1.5 H (0.8-1.3) mg/dL Est Cr Clr Drug Dosing 43.11 mL/min Estimated GFR (MDRD) 45 L (>60) Glucose 104 (74-106) mg/dL Calcium 8.2 L (8.5-10.1) mg/dL Magnesium (1.8-2.4) mg/dL 05/29/21 Range/Units 23:19 WBC (4.5-11.0) K/uL RBC (4.30-5.90) M/uL Hgb (12.0-15.0) g/dL Hct (40.0-54.0) % MCV (80-98) fL MCH (27-31) pg MCHC (32-36) % Plt Count (150-400) K/uL D-Dimer, Quantitative (0.0-500.0) ng/mL Sodium (140-148) mmol/L Potassium (3.6-5.2) mmol/L Chloride (100-108) mmol/L Carbon Dioxide (21-32) mmol/L Anion Gap (5.0-14.0) mmol/L BUN (7-18) mg/dL Creatinine (0.8-1.3) mg/dL Est Cr Clr Drug Dosing mL/min Estimated GFR (MDRD) (>60) Glucose (74-106) mg/dL Calcium (8.5-10.1) mg/dL Magnesium 1.8 (1.8-2.4) mg/dL Meds: Medications Generic Name Dose Route Start Last Admin Trade Name Freq PRN Reason Stop Dose Admin Potassium Chloride/Sodium Chloride 1,000 mls @ 1,000 mls/hr 05/29/21 23:30 05/29/21 23:32 Normal Saline With 20 Meq Kcl IV 1,000 mls/hr ASDIRECTED GUERO Administration Sodium Chloride 10 ml 05/29/21 22:10 05/29/21 22:22 Sodium Chloride 0.9% 10 Ml Syringe FLUSH 10 ml ASDIRECTED PRN Administration Keep Vein Open Discontinued Medications Generic Name Dose Route Start Last Admin Trade Name Sha PRN Reason Stop Dose Admin Acetaminophen 1,000 mg 05/29/21 22:11 05/29/21 22:22 Acetaminophen 500 Mg Tab PO 05/29/21 22:12 1,000 mg ONETIME ONE Administration Ceftriaxone Sodium 1 gm/ 50 mls @ 100 mls/hr 05/29/21 22:48 05/29/21 22:56 Sodium Chloride IV 05/29/21 23:17 100 mls/hr ONETIME ONE Administration Potassium Chloride 40 meq 05/29/21 23:19 05/29/21 23:32 Potassium Chloride 20 Meq Tab.Er PO 05/29/21 23:20 40 meq ONETIME ONE Administration - Radiology Interpretation Free Text/Narrative:: venous doppler LLE-neg for DVT Departure - Departure Time of Disposition: 00:40 Disposition: Home, Self-Care 01 Condition: Fair Clinical Impression: Cellulitis of leg, left, Hypokalemia - Discharge Information *PRESCRIPTION DRUG MONITORING PROGRAM REVIEWED*: Not Applicable *COPY OF PRESCRIPTION DRUG MONITORING REPORT IN PATIENT ALEXIA: Not Applicable Instructions: Cellulitis, Adult, [id number], Hypokalemia Referrals: PCP,None [Primary Care Provider] - Forms: ED Department Discharge Additional Instructions: Continue doxycycline. Starting tomorrow night, unless you are advised otherwise, start cephalexin as directed. Keep your left leg elevated. Take all your other meds as before. You may take acetaminophen as needed for pain or fever control. Recheck in the clinic or here tomorrow mid afternoon or so. Drink ample fluids. Eat a potassium rich diet. Sepsis Event Note (ED) - Evaluation Sepsis Screening Result: No Definite Risk - Focused Exam Vital Signs: Vital Signs Temp Pulse Resp BP Pulse Ox 05/29/21 22:22 56 L 130/56 L 05/29/21 21:44 36.4 C 59 L 16 146/57 H 94 L 05/29/21 21:41 36.4 C 59 L 16 146/57 H 94 L - My Orders Last 24 Hours: My Active Orders 05/29/21 22:10 CULTURE BLOOD [BC] Stat Sodium Chloride 0.9% [Saline Flush] 10 ml FLUSH ASDIRECTED PRN Saline Lock Insert [OM.PC] Routine 05/29/21 22:25 CULTURE BLOOD [BC] Stat 05/29/21 23:30 NS + KCl 20mEq/L [Normal Saline with 20 mEq KCl] 1,000 ml IV ASDIRECTED 05/29/21 23:33 VL Duplex Lwr Ext Veins Ltd Lt [US] Stat - Assessment/Plan Last 24 Hours: My Active Orders 05/29/21 22:10 CULTURE BLOOD [BC] Stat Sodium Chloride 0.9% [Saline Flush] 10 ml FLUSH ASDIRECTED PRN Saline Lock Insert [OM.PC] Routine 05/29/21 22:25 CULTURE BLOOD [BC] Stat 05/29/21 23:30 NS + KCl 20mEq/L [Normal Saline with 20 mEq KCl] 1,000 ml IV ASDIRECTED 05/29/21 23:33 VL Duplex Lwr Ext Veins Ltd Lt [US] Stat
[2021-05-29 22:22] VITALS: BP 130/56; PULSE 56
[2021-05-29] MEDS ORDERED: cefTRIAXone 1 GM in Sodium Chloride 0.9% 50 ML IV ONE (22:48)
[2021-05-29] MEDS ORDERED: Potassium Chloride 20 MEQ Tab.ER PO ONE (23:19)
[2021-05-29] MEDS ORDERED: NS + KCl 20mEq/L 1,000 ML IV SCH (23:30)
--- NOTE | 2021-05-30 10:18 | US ---
VL Duplex Lwr Ext Veins Ltd Lt INDICATION: swelling, elevated d-dimer FINDINGS: Ultrasound examination of the lower extremity using Doppler and compressive technique demonstrates that the common femoral, femoral, and popliteal veins are patent, and negative for thrombus. The calf veins were segmentally visualized and are negative where seen. IMPRESSION: Negative for deep venous thrombosis.
== END 2021-05-30 00:48 | disposition home or self-care (01) ==
LOC: JP.ED 21:06
DX: L03.116 Cellulitis of left lower limb (principal); E87.6 Hypokalemia; I10 Essential (primary) hypertension; E78.00 Pure hypercholesterolemia, unspecified; Z79.82 Long term (current) use of aspirin; Z79.02 Long term (current) use of antithrombotics/antiplatelets; Z79.899 Other long term (current) drug therapy
CPT/HCPCS: 36415; 80048; 83735; 85027; 85379; 87040; 93971; 96365; 96367; 99284; A9270; J0696; J3480

== ENCOUNTER 2021-06-03 11:59 | Emergency (ER) | payer MEDICARE ==
[2021-06-03 12:30] VITALS: BP 137/63; PULSE 64
--- NOTE | 2021-06-03 13:07 | EDM.PDOC ---
ED HPI GENERAL MEDICAL PROBLEM - General Chief Complaint: Skin Complaint Stated Complaint: CELLUITOUS Time Seen by Provider: 06/03/21 12:45 Source of Information: Reports: Patient, Family History Limitations: Reports: No Limitations - History of Present Illness INITIAL COMMENTS - FREE TEXT/NARRATIVE: 80-year-old male who has had some persistent left lower extremity edema over the past couple of weeks, developed a cellulitis which she still has 3 days of antibiotics for. He had an ultrasound of his leg 4 days ago and it was negative for DVT. Over the last 2 days he is driving down [facility] and back, had an MRI for his head because of a "possible stroke" and was told that was fine. Today he has a lot of swelling of his left lower extremity and his daughter wanted it checked again. The erythema has improved, his pain is markedly better, the patient does not like compression stockings. No shortness of breath or cough. Onset: Gradual Duration: Week(s): (Swelling has been present for a couple weeks, worse the last 2 or 3 days) Associated Symptoms: Denies: Confusion, Chest Pain, Cough, Nausea/Vomiting, Shortness of Breath - Related Data Allergies Allergy/AdvReac Type Severity Reaction Status Date / Time No Known Allergies Allergy Verified 06/03/21 12:25 Home Meds: Home Meds Omeprazole 1 tab PO DAILY 04/21/17 [History] Simvastatin [Zocor] 1 tab PO DAILY 04/21/17 [History] Triamterene/Hydrochlorothiazid [Triamterene-HCTZ 37.5-25 MG] 1 tab PO DAILY 04/21/17 [History] Aspirin 325 mg PO DAILY 05/28/21 [History] Clopidogrel [Plavix] 75 mg PO DAILY #30 tablet 05/28/21 [Rx] Doxycycline Monohydrate 100 mg PO BID #20 capsule 05/28/21 [Rx] Losartan [Cozaar] 25 mg PO DAILY 05/28/21 [History] Metoprolol Succinate [Toprol XL] 25 mg PO DAILY 05/28/21 [History] Past Medical History HEENT History: Reports: Impaired Vision Cardiovascular History: Reports: High Cholesterol, Hypertension Respiratory History: Reports: None Gastrointestinal History: Reports: None Genitourinary History: Reports: None Musculoskeletal History: Reports: None Neurological History: Reports: None Psychiatric History: Reports: None Endocrine/Metabolic History: Reports: None Hematologic History: Reports: None Oncologic (Cancer) History: Reports: Basal Cell Carcinoma Dermatologic History: Reports: None - Past Surgical History HEENT Surgical History: Reports: Cataract Surgery, Retinal Cardiovascular Surgical History: Reports: None Respiratory Surgical History: Reports: None GI Surgical History: Reports: None Male Surgical History: Reports: None Endocrine Surgical History: Reports: None Neurological Surgical History: Reports: None Musculoskeletal Surgical History: Reports: Knee Replacement Oncologic Surgical History: Reports: None Dermatological Surgical History: Reports: None Social & Family History - Tobacco Use Tobacco Use Status *Q: Never Tobacco User - Caffeine Use Caffeine Use: Reports: None - Recreational Drug Use Recreational Drug Use: No ED ROS GENERAL - Review of Systems Review Of Systems: See Below Constitutional: Denies: Fever, Chills HEENT: Reports: No Symptoms Respiratory: Denies: Shortness of Breath, Cough Cardiovascular: Denies: Chest Pain GI/Abdominal: Denies: Nausea, Vomiting Skin: Reports: Erythema (This significant erythema of his left lower leg is re solved, no significant bruising) Neurological: Denies: Paresthesia Psychiatric: Reports: No Symptoms ED EXAM, SKIN/RASH Exam: See Below Exam Limited By: No Limitations General Appearance: Alert, No Apparent Distress Head: Atraumatic Respiratory/Chest: Lungs Clear Cardiovascular: Regular Rate, Rhythm. No: Tachycardia Extremities: Other (Exam of the lower extremities does reveal a significant pitting edema of the left lower extremity from the knee down compared to the right. There is no significant erythema or warmth however. There is no significant tenderness to palpation.) Neurological: Alert, Oriented Psychiatric: Normal Affect, Normal Mood Course - Vital Signs Last Recorded V/S: Last Vital Signs Temp 97.7 F 06/03/21 12:36 Pulse 64 06/03/21 12:36 Resp 16 06/03/21 12:36 BP 137/63 06/03/21 12:36 Pulse Ox 100 06/03/21 12:36 - Re-Assessments/Exams Free Text/Narrative Re-Assessment/Exam: 06/03/21 13:04 I do not think a repeat ultrasound is necessary if it was negative just 4 days ago, patient is also on aspirin and Plavix. He just had an extended car [place] of days which probably exacerbated the edema in his leg. We applied two 4 inch Kwaku wraps to the leg firmly, which he thought felt better and I encouraged him to elevate the leg when at rest and wear the compression wraps as much as possible through the weekend. Recheck next week if not improving, or sooner if worsening such as shortness of breath or chest pain. Departure - Departure Time of Disposition: 13:21 Disposition: Home, Self-Care 01 Clinical Impression: Lower extremity edema - Discharge Information Instructions: Peripheral Edema Referrals: Tamia Joseph RN [Primary Care Provider] - Forms: ED Department Discharge Care Plan Goals: Elevate leg when able, keep compression wraps on as much as possible through the weekend, and increase activity as tolerated. Consider rechecking next week if not improving satisfactorily, or return anytime if worsening such as chest pain, shortness of breath or fever. Sepsis Event Note (ED) - Evaluation Sepsis Screening Result: No Definite Risk - Focused Exam Vital Signs: Vital Signs Temp Pulse Resp BP Pulse Ox 06/03/21 12:36 97.7 F 64 16 137/63 100 06/03/21 12:21 97.7 F 64 16 137/63 100
== END 2021-06-03 13:21 | disposition home or self-care (01) ==
LOC: JP.ED 11:59
DX: R60.0 Localized edema (principal); E78.00 Pure hypercholesterolemia, unspecified; I10 Essential (primary) hypertension; Z79.82 Long term (current) use of aspirin; Z79.899 Other long term (current) drug therapy
CPT/HCPCS: 99283

== ENCOUNTER 2022-04-22 18:06 | Emergency (ER) | payer MEDICARE ==
[2022-04-22 18:32] VITALS: BP 159/63; PULSE 67
[2022-04-22] MEDS ORDERED: Ondansetron 4 MG Tab.DIS PO ONE (19:28)
== END 2022-04-22 19:45 | disposition home or self-care (01) ==
LOC: JP.ED 18:06
DX: U07.1 COVID-19 (principal); I10 Essential (primary) hypertension; E78.00 Pure hypercholesterolemia, unspecified; Z79.899 Other long term (current) drug therapy
CPT/HCPCS: 99283; Q0162